=== PATIENT | female | born 1955 | race Caucasian/White ===

== ENCOUNTER 2022-01-24 11:42 | Emergency (ER) | payer MEDICARE ==
[2022-01-24 12:28] LABS: BASOPHIL 0.6 % (0-2); EOSINOPHIL 0.2 % (0-7); HCT 43.1 % (37.0-47.0); HGB 14.4 g/dl (12.5-16.0); MCH 29.9 pg (25.0-31.0); MCHC 33.4 g/dL (32.0-36.0); MCV 89.6 fL (78.0-100.0); MONOCYTE 6.5 % (0-12); MPV 9.6 fL (6.0-9.5); NEUTROPHIL 71.3 % (41-80); NRBC 0; PLT 312 K/uL (150-400); RBC 4.81 M/uL (4.20-5.40); RDW 12.5 % (11.5-14.0); WBC 12.3 K/uL (4.0-10.5)
[2022-01-24 12:33] LABS: INR 1.1 (0.9-1.2); PROTHROMBIN TIME 13.9 SECONDS (11.9-13.9); PTT 25.8 SECONDS (24.9-34.6)
[2022-01-24 12:34] LABS: D-DIMER 0.56 ug/mLFEU (0.00-0.41)
[2022-01-24 12:50] LABS: ALBUMIN 3.8 g/dL (3.4-5.0); BILIRUBIN - TOTAL 0.5 mg/dL (0.2-1.0); BUN/CREAT RATIO (CALC) 25.8 RATIO; CREATININE 0.62 mg/dL (0.51-0.95); GLOBULIN (CALCULATION) 4.4 g/dL; POTASSIUM 3.6 mmol/L (3.5-5.1); TOTAL PROTEIN 8.2 g/dL (6.4-8.2)
[2022-01-24] MEDS ORDERED: ONDANSETRON ODT4 MG PO (14:21)
[2022-01-24] MEDS ORDERED: OMEPRAZOLE40 MG PO (14:21)
== END 2022-01-24 14:45 | disposition home or self-care (01) ==
LOC: FER 11:42
PROVIDERS: Emergency Medicine
DX: K21.9 Gastro-esophageal reflux disease without esophagitis (principal); R07.89 Other chest pain; F17.210 Nicotine dependence, cigarettes, uncomplicated; Z88.0 Allergy status to penicillin; Z20.822 Contact with and (suspected) exposure to COVID-19
CPT/HCPCS: 36415; 71046; 80053; 82553; 84484; 85025; 85379; 85610; 85730; 93005; U0002